=== PATIENT | male | born 1995 | race Caucasian/White ===

== ENCOUNTER 2018-12-01 23:42 | Emergency (ER) | payer OTHER ==
[~2018-12-01] VITALS: Ht 175.3 cm; Wt 70.0 kg
[2018-12-02] MEDS ORDERED: IBUPROFEN 800 MG TAB PO ONE (00:15)
[2018-12-02 00:45] VITALS: BP 133/74
[2018-12-02] MEDS ORDERED: NAPROXEN 250 MG TAB PO ONE (00:45)
--- NOTE | 2018-12-02 01:15 | REP ---
Clinical: Trauma. Technique: Frontal view of the chest with multiple views of the right hemithorax. Findings: Frontal view of the chest demonstrates no acute cardiopulmonary process. Multiple views of the right hemithorax demonstrates no obvious acute rib fracture or pathology. Impression: Normal right rib series Electronically Signed by Prudencio Benitez MD 12/02/2018 01:07 A
--- NOTE | 2018-12-02 01:16 | REP ---
Clinical: Right shoulder trauma . Technique: Internal rotation, external rotation, and Y view. Findings: No acute fracture or dislocation. The acromioclavicular and glenohumeral joints are intact. No periarticular calcifications or degenerative changes are appreciated. Sub acromial space is normal. Surrounding soft tissues are unremarkable. Impression: Normal right shoulder radiographs. Electronically Signed by Prudencio Benitez MD 12/02/2018 01:08 A
--- NOTE | 2018-12-02 01:17 | REP ---
Clinical: Trauma. Technique: AP and lateral views of the right and left knee. Findings: No fracture or dislocation. No obvious effusion. No subcutaneous emphysema or radiodense foreign body. Impression: Normal bilateral knee radiographs. No acute fracture or dislocation. Electronically Signed by Prudencio Benitez MD 12/02/2018 01:09 A
== END 2018-12-02 01:20 | disposition home or self-care (01) ==
LOC: M ED 23:42
DX: T14.8XXA Other injury of unspecified body region, initial encounter (principal); V43.62XA Car passenger injured in collision with other type car in traffic accident, initial encounter; Y92.410 Unspecified street and highway as the place of occurrence of the external cause

== ENCOUNTER 2020-11-21 03:42 | Emergency (ER) | payer OTHER ==
[~2020-11-21] VITALS: Ht 175.3 cm; Wt 76.6 kg
[2020-11-21] MEDS ORDERED: AUGMENTIN 875 MG TAB PO ONE (04:30)
[2020-11-21] MEDS ORDERED: BOOSTRIX/ADACEL VACCINE (DIPHTH/PERTUSS/ACELL/TETANUS) 0.5ML SYR IM ONE (04:30)
[2020-11-21] MEDS ORDERED: AUGM875T28 PO (04:31)
[2020-11-21 05:15] VITALS: BP 121/70
== END 2020-11-21 05:15 | disposition home or self-care (01) ==
LOC: M ED 03:42
DX: S60.872A Other superficial bite of left wrist, initial encounter (principal); Y04.1XXA Assault by human bite, initial encounter; Y92.89 Other specified places as the place of occurrence of the external cause; Y93.9 Activity, unspecified; Y99.1 Military activity

== ENCOUNTER 2024-01-27 20:11 | Observation (INO) | payer OTHER ==
[~2024-01-27] VITALS: Ht 175.3 cm; Wt 74.6 kg
[~2024-01-27 20:11] MED LIST: AUGM875T28 PO
[2024-01-27] MEDS: IBUPROFEN 600MG TAB PO ONE (21:46)
[2024-01-28] MEDS: ONDANSETRON 4MG 2ML VIAL IV ONE (02:12)
[2024-01-28] MEDS: MORPHINE 4 MG/ML 1ML VIAL IV ONE (02:12)
[2024-01-28] MEDS: NS 1,000 ML IV SCH (02:13)
[2024-01-28] MEDS ORDERED: MOM 30ML SUSPENSION UDC PO PRN (02:25)
[2024-01-28] MEDS ORDERED: MORPHINE 4 MG/ML 1ML VIAL IV PRN (02:25)
[2024-01-28] MEDS ORDERED: MAALOX 30 ML SUSP *UDC PO PRN (02:25)
[2024-01-28 02:38] LABS: HEMATOCRIT 37.6 % (42.0-52.0); MEAN CORPUSCULAR HEMOGLOBIN 31.9 pg (27.0-33.0); MEAN CORPUSCULAR HGB CONC 34.6 g/dl (32.0-36.5); MEAN CORPUSCULAR VOLUME 92.2 fl (80.0-96.0); PLATELET COUNT, AUTOMATED 328 10^3/uL (150-450); RED BLOOD COUNT 4.08 10^6/uL (4.30-6.10)
[2024-01-28 03:06] LABS: BLOOD UREA NITROGEN 16 MG/DL (9-23); CALCIUM LEVEL 8.5 MG/DL (8.5-10.1); CARBON DIOXIDE LEVEL 26 MMOL/L (20-31); CHLORIDE LEVEL 105 MMOL/L (98-107); CREATININE FOR GFR 0.94 MG/DL (0.70-1.30); GLOMERULAR FILTRATION RATE > 60.0 (>60); GLUCOSE, FASTING 89 MG/DL (60-100); POTASSIUM SERUM 3.9 MMOL/L (3.5-5.1); SODIUM LEVEL 138 MMOL/L (136-145)
[2024-01-28] MEDS: ACETAMINOPHEN TAB 650MG DOSE (2X325MG) PO PRN (04:00)
[2024-01-28] MEDS ORDERED: MAGN400T35 PO (04:29)
[2024-01-28] MEDS ORDERED: ASHW500C PO (04:29)
[2024-01-28] MEDS ORDERED: FERR1TAB8 PO (04:29)
[2024-01-28] MEDS ORDERED: OYST500T91 PO (04:29)
[2024-01-28] MEDS ORDERED: HOME MED LIST COMPLETE! XX SCH (04:30)
[2024-01-28] MEDS ORDERED: propofoL 200 MG/20 ML VIAL As Ordered ONE (12:17)
[2024-01-28] MEDS ORDERED: LIDOCAINE 2% 100MG/5ML SDV (FOR ANES.) As Ordered ONE (12:17)
[2024-01-28] MEDS ORDERED: MIDAZOLAM INJ 2MG/2ML VIAL As Ordered ONE (12:18)
[2024-01-28] MEDS ORDERED: fentaNYL 100 MCG/2 ML INJECTION As Ordered ONE (12:19)
[2024-01-28] MEDS ORDERED: ONDANSETRON 4MG 2ML VIAL As Ordered ONE (12:20)
[2024-01-28] MEDS ORDERED: ACETAMINOPHEN 1000MG 100ML IV BAG As Ordered ONE (12:21)
[2024-01-28] MEDS ORDERED: KETOROLAC 60MG 2ML VIAL As Ordered ONE (13:13)
[2024-01-28] MEDS: ceFAZolin 2 GM/D5W 50 ML IV BAG As Ordered ONE (13:21)
[2024-01-28] MEDS ORDERED: oxyCODONE 5MG TAB PO PRN (14:15)
[2024-01-28] MEDS ORDERED: ONDANSETRON 4MG 2ML VIAL IV PRN (14:15)
[2024-01-28 15:00] VITALS: BP 137/82; TEMP 97.4; O2SAT 100
[2024-01-28] MEDS ORDERED: IBUP-1022 PO (15:14)
[2024-01-28] MEDS ORDERED: ceFAZolin SOD 2 GM in IV 1 EA IV SCH (21:00)
== END 2024-01-28 15:12 | disposition home or self-care (01) ==
LOC: M ED 20:11 → M ED INP 20:12
PROVIDERS: ADMIT Internal Medicine; ATTEND Internal Medicine
DX: S63.014A Dislocation of distal radioulnar joint of right wrist, initial encounter (principal); W19.XXXA Unspecified fall, initial encounter; Y93.75 Activity, martial arts; Y92.138 Other place on military base as the place of occurrence of the external cause; Z79.899 Other long term (current) drug therapy
CPT/HCPCS: 25606; 73110; 73200; 76000; 80048; 85027; 87635; 96361; 96374; 96375; 99284; J0131; J0690; J1885; J2250; J2405; J3010

== ENCOUNTER → 2024-02-16 | Outpatient (CLI) | payer OTHER ==
[~2024-02-16] MED LIST changes: +ASHW500C PO; +FERR1TAB8 PO; +IBUP-1022 PO; +MAGN400T35 PO; +OYST500T91 PO
== END ==
LOC: M SOG 07:53
PROVIDERS: ATTEND Physician Assistant
DX: S63.014A Dislocation of distal radioulnar joint of right wrist, initial encounter (principal); X58.XXXA Exposure to other specified factors, initial encounter; Y92.9 Unspecified place or not applicable; Y93.9 Activity, unspecified; Y99.9 Unspecified external cause status

== ENCOUNTER → 2024-03-01 | Outpatient (CLI) | payer OTHER | LOC: M PLAIMG 08:09 | PROVIDERS: ATTEND Physician Assistant | DX: S63.014D Dislocation of distal radioulnar joint of right wrist, subsequent encounter (principal) ==

== ENCOUNTER → 2024-03-11 | Outpatient (CLI) | payer OTHER | LOC: M SOG 13:24 | PROVIDERS: ATTEND Physician Assistant | DX: S63.014D Dislocation of distal radioulnar joint of right wrist, subsequent encounter (principal) ==